=== PATIENT | male | born 1945 | race Caucasian/White ===

== ENCOUNTER 2016-07-19 06:04 | Day surgery (SDC) | payer MEDICARE, OTHER ==
--- NOTE | ~2016-07-19 | EGD ---
EGD REPORT [facility] [address] [place] [address] NAME: ANGELICA DOE DDS JR : 41 STATUS : REG [facility] PAT#: [id number] AGE: 71 ADM/REG DATE : 07/19/16 MR#: [id number] REPORT SERV DATE: 07/19/16 DICTATED BY: TIFFANIE HINDS DATE: 07/19/16 REPORT STATUS : Draft TRANSCRIBED BY: [facility] DATE: 07/19/16 Endoscopy Center Patient Name: Angelica Doe Dds Date of : 1945 Attending MD: TIFFANIE HINDS MD Procedure Date No Time: 07/19/2016 Procedure: Colonoscopy Indications: Screening for colorectal malignant neoplasm (last colonoscopy > 10 years ago), Last colonoscopy: March 2006 Referring MD: KI WONG Medicines: Propofol per Anesthesia Complications: No immediate complications. Estimated blood loss: None. Procedure: Pre-Anesthesia Assessment: - After reviewing the risks and benefits, the patient was deemed in satisfactory condition to undergo the procedure. - Prior to the procedure, a History and Physical was performed, and patient medications and allergies were reviewed. The patient's tolerance of previous anesthesia was also reviewed. The risks and benefits of the procedure and the sedation options and risks were discussed with the patient. All questions were answered, and informed consent was obtained. Prior Anticoagulants: The patient has taken no previous anticoagulant or antiplatelet agents. ASA Grade Assessment: II - A patient with mild systemic disease. After reviewing the risks and benefits, the patient was deemed in satisfactory condition to undergo the procedure. After I obtained informed consent, the scope was passed under direct vision. Throughout the procedure, the patient's blood pressure, pulse, and oxygen saturations were monitored continuously. The CF [id number] was introduced through the anus and advanced to the terminal ileum, with identification of the appendiceal orifice and IC valve. The colonoscopy was somewhat difficult due to significant looping and a tortuous colon. Successful completion of the procedure was aided by straightening and shortening the scope to obtain bowel loop reduction. The ileocecal valve, appendiceal orifice and terminal ileum were photographed. The patient tolerated the procedure well. The quality of the bowel preparation was good. The bowel preparation used was polyethylene glycol (PEG). Scope withdrawal time was greater than 7 minutes. EGD REPORT [place] [id number] [place] [place]. [address] NAME: DOE GUNNAR,ANGELICA JANEL BLISS : [birth year] STATUS : REG [facility] PAT#: [id number] AGE: 71 ADM/REG DATE : 07/19/16 MR#: [id number] REPORT SERV DATE: 07/19/16 DICTATED BY: TIFFANIE HINDS DATE: 07/19/16 REPORT STATUS : Draft TRANSCRIBED BY: [facility] DATE: 07/19/16 Findings: The perianal exam was abnormal. Findings include internal hemorrhoids that do not return to the anal canal, thus continuously prolapsed (Grade IV). The terminal ileum appeared normal. The exam was otherwise without abnormality. Impression: - Internal hemorrhoids that do not return to the anal canal, thus continuously prolapsed (Grade IV) found on perianal exam. - The examined portion of the ileum was normal. - The examination was otherwise normal. Recommendation: - Discharge patient to home (ambulatory). - Return to previous diet. - Continue present medications. - Collect Hemoccults on three spontaneously passed stools annually. - No further routine screening colonoscopy. - Return to GI clinic PRN. - Patient has a contact number available for emergencies. The signs and symptoms of potential delayed complications were discussed with the patient. Return to normal activities tomorrow. Written discharge instructions were provided to the patient. Procedure Code(s): --- Professional --- G0121, Colorectal cancer screening; colonoscopy on individual not meeting criteria for high risk Diagnosis Code(s): --- Professional --- K64.3, Fourth degree hemorrhoids Z12.11, Encounter for screening for malignant neoplasm of colon CPT copyright 2013 [employer]. All rights reserved. The codes documented in this report are preliminary and upon clinical coder review may be revised to meet current compliance requirements. TIFFANIE HINDS MD 07/19/2016 7:54 AM This report has been signed electronically. Number of Addenda: 0 EGD REPORT [facility] [address] [address] [facility],ANGELICA ISLAS JR : 41 STATUS : REG [facility] PAT#: [id number] AGE: 71 ADM/REG DATE : 07/19/16 MR#: [id number] REPORT SERV DATE: 07/19/16 DICTATED BY: TIFFANIE HINDS DATE: 07/19/16 REPORT STATUS : Draft TRANSCRIBED BY: [employer] DATE: 07/19/16 Note Initiated On: 07/19/2016 7:21 AM Scope Withdrawal Time 0 hours 7 minutes 6 seconds [address] [id number]
[~2016-07-19 06:04] MED LIST: OS500+D PO
== END 2016-07-19 23:59 | disposition home or self-care (01) ==
LOC: DMU 06:04
PROVIDERS: Internal Medicine Gastroenterology
PROC: 0DJD8ZZ Inspection of Lower Intestinal Tract, Via Natural or Artificial Opening Endoscopic (ICD-10-PCS; principal; 2016-07-19 07:30)
DX: Z12.11 Encounter for screening for malignant neoplasm of colon (principal); K64.3 Fourth degree hemorrhoids; M81.0 Age-related osteoporosis without current pathological fracture; M19.90 Unspecified osteoarthritis, unspecified site; K22.4 Dyskinesia of esophagus; I49.9 Cardiac arrhythmia, unspecified; R01.1 Cardiac murmur, unspecified; Z79.899 Other long term (current) drug therapy